=== PATIENT | female | born 1930 | race Caucasian/White ===

== ENCOUNTER 2019-07-28 13:59 | Inpatient (IN) ==
[2019-07-28] MEDS ORDERED: NALOXONE 0.4 MG/ML VIAL ONE (14:39)
[2019-07-28] MEDS ORDERED: NALOXONE 0.4 MG/ML VIAL IV STA (14:45)
[2019-07-28] MEDS ORDERED: SODIUM CHLORIDE 0.9% 500 ML IV STA (14:49)
[2019-07-28 15:14] LABS: Apearance,Urine Slightly Hazy (Clear); Bacteria,Urine Occasional /HPF (Few); Bilirubin,Urine Negative (Negative); Blood, Urine Negative (Negative); Glucose,Urine (UA) >=500 mg/dL (Negative); Ketones,Urine Negative (Negative); Mucus,Urine Many /LPF (Occasional); Nitrite,Urine Negative (Negative); Protein,Urine Negative; RBC,Urine 2 /HPF (0-4); Urine Color Yellow (Yellow); Urine Specific Gravity 1.029 (1.001-1.035); Urine Urobilinogen < 2.0 EU/DL (0.2-1.0)
[2019-07-28 16:33] LABS: Alanine Aminotransferase 18 U/L (13-56); Albumin 3.6 G/DL (3.4-5.0); Alkaline Phosphatase 90 U/L (45-117); Aspartate Amino Transferase 6 U/L (0-37); Bilirubin,Total < 0.39 MG/DL (0.2-1.0); Blood Urea Nitrogen 46 MG/DL (7-18); Estimated Glom Filtration Rate 29 ML/MIN; Glucose 406 MG/DL (74-106); Osmolality,Calculated 335.3 MOS/KG (273-304); Total Protein 7.5 G/DL (6.4-8.3)
[2019-07-28 16:34] LABS: Basophils % 0.2 % (0.0-0.8); Eosinophils % 0.1 % (0.00-10.9); Hematocrit 55.4 VOL% (35.7-47.0); Immature Granulocytes % 0.3 %; Immature Granulocytes Absolute 0.04 #; Lymphocytes # 1.6 10*3/uL (1.4-4.0); Lymphocytes % 12.5 % (21.3-54.2); Mean Corpuscular HGB Conc 30.1 GM/DL (32-36); Mean Corpuscular Volume 98.4 FL (87-102); Monocytes % 7.6 % (1.7-12.7); Neutrophils % 79.3 % (38.7-73.9); Platelet Count 235 T/CUMM (130-400); Red Blood Count 5.63 MC/CUMM (3.8-5.5); Red Cell Distribution Width 14.3 % (9.3-17.3); White Blood Count 12.9 T/CUMM (4-12)
[2019-07-28 16:36] LABS: Hemoglobin 16.7 GM/DL (12.0-16.0)
[2019-07-28] MEDS ORDERED: INSULIN REGULAR 100 UNIT/ML SUBCUT STA (16:46)
[2019-07-28] MEDS ORDERED: ACETAMINOPHEN 325 MG TABLET PO PRN (17:35)
[2019-07-28] MEDS ORDERED: ONDANSETRON 4 MG/2 ML VIAL IV PRN (17:35)
[2019-07-28] MEDS ORDERED: GLUCAGON 1 MG VIAL IM PRN ×2 (17:35)
[2019-07-28] MEDS ORDERED: DEXTROSE 10% 250 ML BAG IV PRN (17:35)
[2019-07-28] MEDS ORDERED: DEXTROSE 50% 25 GM/50 ML VIAL IV PRN (17:35)
[2019-07-28] MEDS: DEXTROSE 5% 1,000 ML IV SCH (20:51)
[2019-07-28] MEDS: ENOXAPARIN 30 MG/0.3 ML SYRINGE SUBCUT SCH (20:52)
[2019-07-28] MEDS: PIPERACILLIN/TAZOBACTAM 3,375 MG in SODIUM CHLORIDE 0.9% 100 ML IV SCH (20:52)
[2019-07-28] MEDS: INSULIN LISPRO 100 UNIT/ML SUBCUT SCH (20:53)
[2019-07-29] MEDS: DEXTROSE 5% 1,000 ML IV SCH ×4 (04:30→22:45)
[2019-07-29] MEDS: PIPERACILLIN/TAZOBACTAM 3,375 MG in SODIUM CHLORIDE 0.9% 100 ML IV SCH ×3 (04:55→21:26)
[2019-07-29 06:05] LABS: Basophils % 0.3 % (0.0-0.8); Eosinophils % 0.1 % (0.00-10.9); Hematocrit 47.7 VOL% (35.7-47.0); Hemoglobin 14.7 GM/DL (12.0-16.0); Immature Granulocytes % 0.3 %; Immature Granulocytes Absolute 0.04 #; Lymphocytes # 1.5 10*3/uL (1.4-4.0); Lymphocytes % 11.4 % (21.3-54.2); Mean Corpuscular HGB Conc 30.8 GM/DL (32-36); Mean Platelet Volume 11.8 FL (9.6-12.0); Monocytes % 7.7 % (1.7-12.7); Neutrophils % 80.2 % (38.7-73.9); Platelet Count 209 T/CUMM (130-400); Red Blood Count 4.97 MC/CUMM (3.8-5.5); Red Cell Distribution Width 14.3 % (9.3-17.3); White Blood Count 13.5 T/CUMM (4-12)
[2019-07-29 06:39] LABS: Albumin 2.9 G/DL (3.4-5.0); Bilirubin,Total 1.4 MG/DL (0.2-1.0); Calcium 10.2 MG/DL (8.5-10.1); Thyroid Stimulating Hormone 0.466 uIU/ml (0.358-3.74); Total Protein 6.1 G/DL (6.4-8.3)
[2019-07-29 06:46] LABS: Ferritin 161.9 ng/ml (8-252)
[2019-07-29 07:38] LABS: Parathyroid Hormone Intact 129.6 PG/ML (18.4-80.1)
[2019-07-29] MEDS: PANTOPRAZOLE 40 MG TABLET PO SCH (09:03)
[2019-07-29] MEDS: INSULIN LISPRO 100 UNIT/ML SUBCUT SCH ×4 (09:54→21:24)
[2019-07-29] MEDS: ENOXAPARIN 30 MG/0.3 ML SYRINGE SUBCUT SCH (21:25)
[2019-07-30] MEDS: PIPERACILLIN/TAZOBACTAM 3,375 MG in SODIUM CHLORIDE 0.9% 100 ML IV SCH ×3 (05:22→21:18)
[2019-07-30 06:29] LABS: Basophils % 0.3 % (0.0-0.8); Eosinophils # 0.1 10*3/uL (0.0-0.87); Eosinophils % 1.2 % (0.00-10.9); Hematocrit 45.3 VOL% (35.7-47.0); Immature Granulocytes % 0.5 %; Immature Granulocytes Absolute 0.06 #; Lymphocytes # 2.3 10*3/uL (1.4-4.0); Lymphocytes % 20.4 % (21.3-54.2); Mean Corpuscular HGB Conc 30.9 GM/DL (32-36); Mean Corpuscular Volume 97.4 FL (87-102); Mean Platelet Volume 12.2 FL (9.6-12.0); Monocytes % 7.1 % (1.7-12.7); Neutrophils % 70.5 % (38.7-73.9); Platelet Count 181 T/CUMM (130-400); Red Blood Count 4.65 MC/CUMM (3.8-5.5); Red Cell Distribution Width 13.5 % (9.3-17.3); White Blood Count 11.5 T/CUMM (4-12)
[2019-07-30 06:41] LABS: Ferritin 204.7 ng/ml (8-252)
[2019-07-30 06:52] LABS: Albumin 2.8 G/DL (3.4-5.0); Bilirubin,Total 0.9 MG/DL (0.2-1.0); Calcium 9.7 MG/DL (8.5-10.1); Osmolality,Calculated 308.7 MOS/KG (273-304); Total Protein 6.1 G/DL (6.4-8.3)
[2019-07-30] MEDS ORDERED: MAGNESIUM SULF RIDER 4 GM in PREMIX 1 EACH IV PRN (08:07)
[2019-07-30] MEDS: INSULIN LISPRO 100 UNIT/ML SUBCUT SCH ×4 (09:06→21:17)
[2019-07-30] MEDS: MULTIVITAMIN LIQUID (CENTRUM) 60 ML BOTTLE PO SCH (09:07)
[2019-07-30] MEDS: PANTOPRAZOLE 40 MG TABLET PO SCH (09:07)
[2019-07-30] MEDS: POTASSIUM CHLORIDE 20 MEQ TABLET PO PRN ×4 (09:07→18:48)
[2019-07-30] MEDS: MAGNESIUM SULF RIDER 2 GM in PREMIX 1 EACH IV PRN (09:37)
[2019-07-30] MEDS: DEXTROSE 5% 1,000 ML IV SCH (15:37)
[2019-07-30] MEDS: ENOXAPARIN 30 MG/0.3 ML SYRINGE SUBCUT SCH (21:18)
[2019-07-31] MEDS: PIPERACILLIN/TAZOBACTAM 3,375 MG in SODIUM CHLORIDE 0.9% 100 ML IV SCH ×3 (05:23→21:00)
[2019-07-31 06:12] LABS: Basophils % 0.2 % (0.0-0.8); Eosinophils # 0.2 10*3/uL (0.0-0.87); Eosinophils % 2.3 % (0.00-10.9); Hematocrit 40.4 VOL% (35.7-47.0); Hemoglobin 12.6 GM/DL (12.0-16.0); Immature Granulocytes % 0.4 %; Immature Granulocytes Absolute 0.04 #; Lymphocytes # 1.7 10*3/uL (1.4-4.0); Lymphocytes % 18.4 % (21.3-54.2); Mean Corpuscular HGB Conc 31.2 GM/DL (32-36); Mean Corpuscular Volume 95.5 FL (87-102); Mean Platelet Volume 12.2 FL (9.6-12.0); Monocytes % 7.2 % (1.7-12.7); Neutrophils % 71.5 % (38.7-73.9); Platelet Count 157 T/CUMM (130-400); Red Blood Count 4.23 MC/CUMM (3.8-5.5); Red Cell Distribution Width 13.3 % (9.3-17.3); White Blood Count 9.1 T/CUMM (4-12)
[2019-07-31 06:27] LABS: Albumin 2.7 G/DL (3.4-5.0); Bilirubin,Total 0.8 MG/DL (0.2-1.0); Calcium 9.1 MG/DL (8.5-10.1); Osmolality,Calculated 302.3 MOS/KG (273-304); Total Protein 5.6 G/DL (6.4-8.3)
[2019-07-31] MEDS ORDERED: POTASSIUM CHLORIDE 20 MEQ TABLET PO ONE (08:23)
[2019-07-31] MEDS: INSULIN LISPRO 100 UNIT/ML SUBCUT SCH ×4 (08:41→20:55)
[2019-07-31] MEDS: PANTOPRAZOLE 40 MG TABLET PO SCH (08:42)
[2019-07-31] MEDS: MULTIVITAMIN LIQUID (CENTRUM) 60 ML BOTTLE PO SCH (11:24)
[2019-07-31] MEDS: ENOXAPARIN 30 MG/0.3 ML SYRINGE SUBCUT SCH (20:56)
[2019-08-01] MEDS: PIPERACILLIN/TAZOBACTAM 3,375 MG in SODIUM CHLORIDE 0.9% 100 ML IV SCH (04:54)
[2019-08-01] MEDS: INSULIN LISPRO 100 UNIT/ML SUBCUT SCH ×4 (09:03→21:36)
[2019-08-01] MEDS: PANTOPRAZOLE 40 MG TABLET PO SCH (09:04)
[2019-08-01] MEDS: MULTIVITAMIN LIQUID (CENTRUM) 60 ML BOTTLE PO SCH (10:56)
[2019-08-01 12:07] LABS: Calcium 9.3 MG/DL (8.5-10.1); Osmolality,Calculated 301.6 MOS/KG (273-304)
[2019-08-01] MEDS: ceFAZolin 2,000 MG in PREMIX 1 EACH IV SCH ×2 (12:23→21:34)
[2019-08-01] MEDS: MAGNESIUM SULF RIDER 2 GM in PREMIX 1 EACH IV PRN (16:33)
[2019-08-01] MEDS: POTASSIUM CHLORIDE 20 MEQ TABLET PO PRN ×2 (16:33→18:19)
[2019-08-01] MEDS: ENOXAPARIN 30 MG/0.3 ML SYRINGE SUBCUT SCH (21:35)
[2019-08-02] MEDS: ceFAZolin 2,000 MG in PREMIX 1 EACH IV SCH ×3 (04:11→21:24)
[2019-08-02] MEDS: DEXTROSE 5% 1,000 ML IV SCH (04:53)
[2019-08-02 08:42] LABS: Calcium 8.8 MG/DL (8.5-10.1); Osmolality,Calculated 282.5 MOS/KG (273-304)
[2019-08-02] MEDS: INSULIN LISPRO 100 UNIT/ML SUBCUT SCH ×4 (08:58→21:32)
[2019-08-02] MEDS: PANTOPRAZOLE 40 MG TABLET PO SCH (08:58)
[2019-08-02] MEDS: MULTIVITAMIN LIQUID (CENTRUM) 60 ML BOTTLE PO SCH (09:39)
[2019-08-02] MEDS ORDERED: POTASSIUM CHLORIDE RIDER 10 MEQ in PREMIX 1 EACH IV ONE (10:13)
[2019-08-02] MEDS: POTASSIUM CHLORIDE RIDER 10 MEQ in PREMIX 1 EACH IV SCH ×2 (13:19→15:56)
[2019-08-02] MEDS: MENTHOL/ZINC OXIDE OINT 71 GM JAR TOP SCH (21:24)
[2019-08-02] MEDS: ENOXAPARIN 30 MG/0.3 ML SYRINGE SUBCUT SCH (21:32)
[2019-08-03] MEDS: ceFAZolin 2,000 MG in PREMIX 1 EACH IV SCH ×2 (05:07→12:48)
[2019-08-03 06:44] LABS: Basophils % 0.2 % (0.0-0.8); Eosinophils # 0.3 10*3/uL (0.0-0.87); Hematocrit 36.6 VOL% (35.7-47.0); Hemoglobin 12.2 GM/DL (12.0-16.0); Immature Granulocytes % 0.4 %; Immature Granulocytes Absolute 0.04 #; Lymphocytes # 1.8 10*3/uL (1.4-4.0); Lymphocytes % 19.2 % (21.3-54.2); Mean Corpuscular HGB Conc 33.3 GM/DL (32-36); Mean Corpuscular Volume 89.1 FL (87-102); Mean Platelet Volume 12.8 FL (9.6-12.0); Monocytes % 7.7 % (1.7-12.7); Neutrophils % 69.5 % (38.7-73.9); Platelet Count 150 T/CUMM (130-400); Red Blood Count 4.11 MC/CUMM (3.8-5.5); Red Cell Distribution Width 13.1 % (9.3-17.3); White Blood Count 9.1 T/CUMM (4-12)
[2019-08-03 07:01] LABS: Calcium 9.1 MG/DL (8.5-10.1); Osmolality,Calculated 283.3 MOS/KG (273-304)
[2019-08-03 08:20] VITALS: BP 109/59
[2019-08-03] MEDS: INSULIN LISPRO 100 UNIT/ML SUBCUT SCH ×2 (09:15→12:09)
[2019-08-03] MEDS: MENTHOL/ZINC OXIDE OINT 71 GM JAR TOP SCH (09:15)
[2019-08-03] MEDS: PANTOPRAZOLE 40 MG TABLET PO SCH (09:16)
[2019-08-03] MEDS: MULTIVITAMIN LIQUID (CENTRUM) 60 ML BOTTLE PO SCH (09:16)
== END 2019-08-03 14:50 | DRG 872 ==
LOC: EDUNIT# → EDBD → N.ED 13:59 → N.EDINP 17:16 → SUATTDRO 17:16 → N.2E 18:07 → N.TELES 07-31 17:43
PROVIDERS: ADMIT Internal Medicine; ATTEND Internal Medicine